=== PATIENT | male | born 1985 | race Two or more races ===

== ENCOUNTER 2017-01-27 13:51 | Emergency (ER) | payer MEDICAID ==
[~2017-01-27] VITALS: Ht 182.9 cm; Wt 90.7 kg
[2017-01-27 15:05] VITALS: BP 127/62
== END 2017-01-27 15:58 | disposition home or self-care (01) ==
LOC: ER 14:07
DX: S32.601D Unspecified fracture of right ischium, subsequent encounter for fracture with routine healing (principal); F17.210 Nicotine dependence, cigarettes, uncomplicated; V49.9XXD Car occupant (driver) (passenger) injured in unspecified traffic accident, subsequent encounter
CPT/HCPCS: 73502